=== PATIENT | female | born 1955 | race Asian ===

== ENCOUNTER 2016-09-09 10:07 | Emergency (ER) | payer OTHER ==
[~2016-09-09] VITALS: Ht 170.2 cm; Wt 61.4 kg
[~2016-09-09 10:07] MED LIST: ALBU90AE IH; ASPI-973 PO; DIAZ5TAB PO; DOXE10CA PO; HYDR-3740 PO; IMI100 PO; LOSA50TA37 PO; MULT1CAP33 PO; OMEP20CA11 PO; PRAV10TA2 PO
[2016-09-09 10:10] VITALS: BP 156/86; PULSE 115; RESP 16; O2SAT 100
--- NOTE | 2016-09-09 10:38 | ED.REPORT ---
HPI-General Illness Date of Service Sep 09, 2016 ED Provider: Nicolasa Mejia MD Pt is a 60 y/o female w/ a hx of HTN, presenting to the ED c/o rapid heart palpitations onset this morning. 8 days ago, the patient was experiencing hypertension up to 175 systolic and called her PCP who increased her Losartan to 100 mg and 25 mg of diuretic. She then began to experience hypotension and lightheadedness and experienced a near-syncopal episode 3 days ago which quickly resolved. Because of this, last night she took only 25 mg Losartan and stopped the diuretic. She does note that she has been experiencing bilateral leg cramping which only began after the diuretic was started and has not resolved after cessation. This morning, she went to her PCP and it was discovered that her heart rate was 130 bpm and was told to come here for further evaluation. She denies CP, SOB, fever, chills. Nursing Notes Stated Complaint: RAPID HEART RATE Chief Complaint: General Complaint Nursing Notes Reviewed: Yes Allergies: Coded Allergies: Nitrofurantoin Macrocrystal (Verified Allergy, Severe, palpitations, leg cramps, numbness on feet, 04/10/10) Sulfa (Sulfonamide Antibiotics) (Verified Allergy, Severe, palpitations, leg cramps, numbness on feet, 04/10/10) nitrofurantoin (Verified Allergy, Severe, palpitations, leg cramps, numbness on feet, 04/10/10) lisinopril (Verified Allergy, Intermediate, COUGH, 04/30/16) Scheduled Aspirin (Aspirin) 81 Mg Tablet 81 MG PO DAILY Diazepam (Valium) 5 Mg Tablet 5 MG PO TID Losartan Potassium (Losartan Potassium) 50 Mg Tablet 50 MG PO HS Multivitamin (Multivitamins) 1 Each Capsule 1 EACH PO DAILY Omeprazole (Omeprazole) 20 Mg Capsule.dr 20 MG PO BID Pravastatin (Pravastatin) 10 Mg Tablet 10 MG PO HS Sumatriptan (Imitrex) 100 Mg Tablet 100 MG PO PRN Scheduled PRN Doxepin (Doxepin) 10 Mg Capsule 20 MG PO DAILY PRN PRN UNKNOWN Hydrocodone-Acetaminophen 10-325 mg (Hydrocodone-Acetaminophen 10-325 mg) 1 Each Tablet 1-2 TABLET PO Q6H PRN PRN For Pain General Time Seen by MD: 10:16 Chief Complaint Other (Palpitations) Hx Obtained From: Patient Arrived By: Walk-in Sudden in Onset?: No Onset Occurred: 5 - 8 hours ago Symptom Duration: Since onset Severity: Current: No pain currently Severity: Maximum: No pain Similar Sx Previous: No Past Medical History Past Medical History Hypertension GERD Hx bronchitis Hx UTI Past Surgical History None reported Smoking History Unknown if Ever Smoker Ambulatory Status Independent Review of Systems Full Review of Systems Constitutional: Denies: Chills, Fever Respiratory: Denies: Non-productive cough, Shortness of breath Cardiovascular: Reports: Palpitations, Denies: Chest pain, Dyspnea on exertion GI: Denies: Nausea, Vomiting Musculoskeletal: Reports: Extremity pain, Denies: Extremity swelling Neurologic: Reports: Lightheaded, Denies: Headache Complete sys rev & neg: except as marked. Physical Exam Vital Signs Vital Signs Date Time Temp Pulse Resp B/P Pulse Ox O2 Delivery O2 Flow Rate FiO2 09/09/16 12:28 36.7 95 20 114/74 95 Room Air 09/09/16 10:10 36.1 115 16 156/86 100 Room Air Initial VS: Reviewed, Vital signs abnormal Head / Eyes: Atraumatic, Normocephalic, PERRL ENT: Mucous membranes moist, Conjunctiva normal, No scleral icterus Neck: Supple, Full range of motion Respiratory: Breath sounds normal, Clear to auscultation, No respiratory distress Abdomen / GI: Soft, Non-tender Extremities: Vascular intact, Neuro intact, No swelling, No tenderness Skin: Warm, Dry, No cyanosis Neurologic: Alert, Oriented, Nonfocal Psychiatric: Mood/affect normal, Behavior normal, Normal thought content General/Constitutional: Awake, Alert, No acute distress, Well appearing, Cooperative, Not toxic appearing Cardiovascular: Regular rhythm, Heart sounds NL, No gallop, No murmurs, No rubs , Cap refill not delayed, Peripheral circulation NL Heart Rate / Rhythm: Positive: Tachycardia Interpretation & Diagnostics Lab Results Interpretation Result Diagram: 09/09/16 1108 09/09/16 1108 Test 09/09/16 11:08 White Blood Count 5.0th/mm3 (3.8-10.1) Red Blood Count 4.62mil/mm3 (3.90-5.20) Hemoglobin 13.5g/dL (12.0-15.6) Hematocrit 41.1% (35.0-46.0) Mean Corpuscular Volume 89.0fL (81-100) Mean Corpuscular Hemoglobin 29.2pg (27.0-35.0) Mean Corpuscular Hemoglobin Concent 32.8% (32.0-37.0) Red Cell Distribution Width 12.8% (12.3-15.4) Platelet Count 265bil/L (150-400) Neutrophils (%) (Auto) 44.8% (40-74) Lymphocytes (%) (Auto) 46.4% (14-46) Monocytes (%) (Auto) 6.8% (4-12) Eosinophils (%) (Auto) 1.0% (0-5) Basophils (%) (Auto) 0.8% (0-3) Sodium Level 139mEq/L (134-144) Potassium Level 4.2mEq/L (3.5-5.2) Chloride Level 98mEq/L (97-108) Carbon Dioxide Level 23mmol/L (18-29) Blood Urea Nitrogen 21mg/dL (8-27) Creatinine 0.69mg/dL (0.57-1.00) Estimat Glomerular Filtration Rate 124mL/min (>59) Glucose Level 114mg/dL (60-99) Calcium Level 9.5mg/dL (8.5-10.1) Magnesium Level 2.2mg/dL (1.6-2.6) Total Bilirubin 0.4mg/dL (0.0-1.2) Aspartate Amino Transf (AST/SGOT) 21U/L (0-50) Alanine Aminotransferase (ALT/SGPT) 23U/L (0-32) Alkaline Phosphatase 80U/L (25-165) Troponin T < 0.010ug/L (0.0-0.011) Total Protein 7.8g/dL (6.4-8.4) Albumin 4.7g/dL (3.4-5.0) ECG Interpretation ECG Interpretation: Sinus tachycardia rate 101 LVH Time: 10:48 Interpreted by: ED physician Normal ECG Interpretation: No change from prior ECGs X-Ray Chest Interpretation Chest Xray Interpretation: IMPRESSION: No acute cardiopulmonary disease process. Dictated by: Debra Little MD, PhD on 09/09/2016 at 10:45 Approved by: Debra Little MD, PhD on 09/09/2016 at 10:45 View: Portable, 1 view Interpretation / Wet Read by: Interpret - Radiologist Re-Eval/Medical Decision Time of Eval: 12:30 Re-Evaluation/Progress Note: Pt rechecked. BP laying down 116/80, standing up unchanged. HR went from 98 to 120. She had not received IV fluids while in the ED. Will give IV fluids and discharge. Informed pt of plan for treatment. Pt understands and agrees with plan for treatment. F/U and RTER warnings given. All questions addressed. Counseled Regarding: Diagnosis, Lab results, Need for follow-up, When/why to return to ED Discharge & Departure Primary Impression: Adverse drug reaction Encounter type: initial encounter Qualified Code: T88.7XXA - Unspecified adverse effect of drug or medicament, initial encounter Additional Impressions: LVH (left ventricular hypertrophy) Hypertension Hypertension type: essential hypertension Hypertension goal: unspecified goal Qualified Code: I10 - Essential (primary) hypertension Disposition: Home Discharge Condition All VS Reviewed: Yes Condition: Stable Additional Instructions: I believe your symptoms are caused by the combination of hydrochlorthiazide and Losartan. Your labs, chest x-ray, and EKG today were normal. There was no sign of heart attack or other dangerous conditions. You will benefit from drinking more fluids over the next days. You should stop the Losartan and hydrochlorthiazide until you are able to speak with your primary care doctor. Please do keep a record of daily blood pressures to share with Dr Carvajal when you see her. Please schedule an apointment in the next few days Thank you for letting us take care of you today Referrals: Cris Carvajal MD (PCP) Scribe Attestation Portions of this note were transcribed by Esteban Guerrier. I, Dr. Mejia personally performed the history, physical exam and medical decision-making; I reviewed and confirmed the accuracy of the information in the transcribed note. Signed by Pacheco Amezcua, 09/09/16 - 1100 copies to: Cris Carvajal MD, Shawna L MD Sep 09, 2016 10:38 ESTEBAN GUERRIER Sep 09, 2016 10:47
--- NOTE | 2016-09-09 10:46 | DRSVH ---
PROCEDURE: X-RAY CHEST ONE VIEW, PORTABLE ([id number]) INDICATIONS: rapid heart rate TECHNIQUE: One view of the chest was acquired. COMPARISON: None. FINDINGS: Surgical changes and devices: Cervical spine fixation hardware noted. Lungs and pleura: No pleural effusions or pneumothorax. Lungs are clear. Mediastinum: Mediastinal contours appear normal. Heart size is normal. Bones and chest wall: No suspicious bony lesions. Overlying soft tissues appear unremarkable. IMPRESSION: No acute cardiopulmonary disease process. Dictated by: Debra Little MD, PhD on 09/09/2016 at 10:45 Approved by: Debra Little MD, PhD on 09/09/2016 at 10:45
[2016-09-09 11:18] LABS: BASOPHILS % (AUTO) 0.8 % (0-3); MONOCYTES % (AUTO) 6.8 % (4-12); Mean Corpuscular Hemoglobin 29.2 pg (27.0-35.0); NEUTROPHILS % (AUTO) 44.8 % (40-74); Platelet Count 265 bil/L (150-400)
[2016-09-09 11:54] LABS: Magnesium 2.2 mg/dL (1.6-2.6); TROPONIN T < 0.010 ug/L (0.0-0.011)
[2016-09-09 12:28] VITALS: BP 114/74; PULSE 95; RESP 20; O2SAT 95
[2016-09-09 12:51] VITALS: BP_SYST 130
== END 2016-09-09 12:52 | disposition home or self-care (01) ==
LOC: SED 10:07
DX: R00.2 Palpitations (principal); T50.2X5A Adverse effect of carbonic-anhydrase inhibitors, benzothiadiazides and other diuretics, initial encounter; T44.5X5A Adverse effect of predominantly beta-adrenoreceptor agonists, initial encounter; I51.7 Cardiomegaly; I10 Essential (primary) hypertension; X58.XXXA Exposure to other specified factors, initial encounter; Y93.89 Activity, other specified; Y99.8 Other external cause status; Y92.9 Unspecified place or not applicable; K21.9 Gastro-esophageal reflux disease without esophagitis; Z87.440 Personal history of urinary (tract) infections; Z79.82 Long term (current) use of aspirin; Z88.2 Allergy status to sulfonamides; Z88.8 Allergy status to other drugs, medicaments and biological substances